=== PATIENT | male | born 1965 | race Caucasian/White ===

== ENCOUNTER 2024-10-21 03:53 | Inpatient (IN) | payer MEDICAID ==
[~2024-10-21] VITALS: Ht 165.1 cm; Wt 91.6 kg
[2024-10-21] MEDS: SODIUM CHLORIDE 0.9% 1,000 ML IV ONE (04:13)
[2024-10-21] MEDS: ONDANSETRON HCL 4MG/2ML INJ IV STA (04:43)
[2024-10-21] MEDS: MORPHINE SULFATE 4 MG/ML INJ (FOR IV/IM USE) IV STA (04:43)
[2024-10-21 05:37] LABS: CLARITY URINE CLEAR (CLEAR); COLOR URINE YELLOW (YELLOW); GLUCOSE URINE TRACE (NEGATIVE); KETONES URINE NEGATIVE (NEGATIVE); LEUKOCYTE ESTERASE URINE NEGATIVE (NEGATIVE); NITRITE URINE NEGATIVE (NEGATIVE); OCCULT BLOOD URINE TRACE (NEGATIVE); PROTEIN URINE 3+ (NEGATIVE); SPECIFIC GRAVITY URINE 1.023 (1.005-1.030); UROBILINOGEN URINE 0.2 E.U./dL (0.2-1.0)
[2024-10-21] MEDS: CEFTRIAXONE 1GM/50ML 50 ML IV ONE (05:45)
[2024-10-21 05:52] LABS: *AMPHETAMINES SCREEN URINE NEGATIVE (NEGATIVE)
[2024-10-21 05:52] LABS: HEMATOCRIT. 43.7 % (42.0-52.0); HEMOGLOBIN. 14.5 g/dL (14.0-18.0); MEAN CORPUSCULAR HEMOGLOBIN 27.6 pg (28.0-32.0); MEAN CORPUSCULAR HGB CONC 33.2 g/dL (31.0-37.0); MEAN CORPUSCULAR VOLUME 83.1 fL (80.0-94.0); MEAN PLATELET VOLUME 9.2 fl (7.4-10.4); PLATELET 316 x1000/uL (130-400); RED BLOOD CELL COUNT 5.25 mill/uL (4.7-6.1); RED CELL DISTRIBUTION WIDTH 14.5 % (11.6-14.6); WHITE BLOOD COUNT 13.4 x1000/uL (4.5-11.0)
[2024-10-21 05:54] LABS: *BARBITURATES SCREEN URINE NEGATIVE (NEGATIVE); *BENZODIAZEPINES SCREEN URINE NEGATIVE (NEGATIVE); *COCAINE SCREEN URINE NEGATIVE (NEGATIVE); CANNABINOID URINE SCREEN NEGATIVE (NEGATIVE); ECSTASY MDMA SCREEN URINE NEGATIVE (NEGATIVE); METHADONE URINE SCREEN NEGATIVE (NEGATIVE); OPIATES URINE SCREEN NEGATIVE (NEGATIVE); PHENCYCLIDINE URINE SCREEN NEGATIVE (NEGATIVE)
[2024-10-21 06:02] LABS: PROTHROMBIN TIME 11.2 sec (9.6-11.0)
[2024-10-21 06:05] LABS: DIFFERENTIAL COMMENT 1
[2024-10-21] MEDS: METRONIDAZOLE 500 MG PREMIX 100 ML IV ONE (06:11)
[2024-10-21 06:42] LABS: RBC URINE 0-2 /hpf (0-2); WBC URINE 0-2 /hpf (0-2)
[2024-10-21 06:44] LABS: BACTERIA URINE NONE SEEN; SQUAMOUS EPITHELIAL CELL URINE NONE SEEN /lpf (RARE/1+)
[2024-10-21] MEDS: LABETALOL 5MG/ML 4ML INJ IV ONE (07:36)
[2024-10-21] MEDS: KETOROLAC 15MG/ML VIAL IV ONE (07:36)
[2024-10-21 08:02] LABS: CARBON DIOXIDE 26 mEq/L (21-32); CHLORIDE 101 mEq/L (98-107); POTASSIUM 3.7 mEq/L (3.5-5.1); SODIUM 135 mEq/L (136-145)
[2024-10-21 08:03] LABS: CALCIUM 9.3 mg/dL (8.7-10.4)
[2024-10-21 08:07] LABS: TROPONIN I HIGH SENSITIVITY 7 ng/L (3.0-53)
[2024-10-21 08:08] LABS: CREATININE 1.1 mg/dL (0.6-1.3); GLUCOSE 145 mg/dL (70-105); UREA NITROGEN BLOOD 12 mg/dL (9-23)
[2024-10-21 08:09] LABS: ALANINE AMINOTRANSFERASE 31 IU/L (10-49); ALBUMIN 4.5 g/dL (3.2-4.8); ASPARTATE AMINOTRANSFERASE 58 IU/L (<34)
[2024-10-21 08:10] LABS: BILIRUBIN TOTAL 0.6 mg/dL (0.1-1.0); PROTEIN TOTAL 7.8 g/dL (6.0-8.3)
[2024-10-21 09:30] LABS: ETHANOL BLOOD < 10 mg/dL (<10)
[2024-10-21] MEDS ORDERED: DEXTROSE 50% WATER 50ML SYRINGE IV PRN (11:00)
[2024-10-21] MEDS ORDERED: ACETAMINOPHEN 325MG TABLET PO PRN (11:00)
[2024-10-21] MEDS ORDERED: MAGNESIUM/ALUMINUM HYDROXIDE/SIMETHICONE 30ML UDC PO PRN (11:00)
[2024-10-21] MEDS ORDERED: GUAIFENESIN 200MG/10ML SUGAR FREE UDC PO PRN (11:00)
[2024-10-21] MEDS ORDERED: IPRATROPIUM/ALBUTEROL 0.5-3(2.5)MG/3ML NEB HHN PRN (11:00)
[2024-10-21] MEDS ORDERED: DOCUSATE SODIUM 100MG CAPSULE PO PRN (11:00)
[2024-10-21] MEDS ORDERED: ONDANSETRON HCL 4MG/2ML INJ IV PRN (11:00)
[2024-10-21] MEDS ORDERED: NALOXONE HCL 0.4MG/ML VIAL IV PRN (11:15)
[2024-10-21] MEDS: HYDRALAZINE 20MG/ML VIAL IV PRN (11:46)
[2024-10-21] MEDS: PANTOPRAZOLE SODIUM 40 MG/VIAL IV SCH (12:15)
[2024-10-21 12:45] LABS: INR 0.9; PARTIAL THROMBOPLASTIN TIME 26.8 sec (23.4-31.0); PROTHROMBIN TIME 10.6 sec (9.6-11.0)
[2024-10-21] MEDS: INSULIN LISPRO 100 UNITS/ML SUBCUT SCH (12:50)
[2024-10-21] MEDS: BLOOD SUGAR DIAGNOSTIC STRIP TEST SCH (13:16)
[2024-10-21 13:27] LABS: PLATELET ESTIMATE NORMAL
[2024-10-21] MEDS: PIPERACILLIN/TAZO 3.375G/50ML 50 ML IV SCH (14:00)
[2024-10-21] MEDS: AMLODIPINE 5MG TABLET PO SCH (15:30)
[2024-10-21 15:54] VITALS: BP 176/106; PULSE 70; RESP 18; TEMP 36.8
[2024-10-21 16:24] LABS: LACTIC ACID 2.4 mmol/L (0.4-2.0)
[2024-10-21 16:25] LABS: TROPONIN I HIGH SENSITIVITY 6 ng/L (3.0-53)
[2024-10-21 16:26] LABS: CREATINE KINASE 94 IU/L (46-171)
[2024-10-21 20:00] VITALS: BP 138/101; PULSE 91; RESP 18; TEMP 37.9; O2SAT 98
[2024-10-21] MEDS: SODIUM CHLORIDE 0.9% 1,000 ML IV SCH (21:21)
[2024-10-21] MEDS: ACETAMINOPHEN 325MG TABLET PO PRN (21:21)
[2024-10-21 22:18] LABS: TROPONIN I HIGH SENSITIVITY 6 ng/L (3.0-53)
[2024-10-21 22:19] LABS: CREATINE KINASE 82 IU/L (46-171)
[2024-10-22] VITALS: BP 159/98; PULSE 66; RESP 18; TEMP 37; O2SAT 99
[2024-10-22 04:00] VITALS: BP 155/93; PULSE 76; RESP 17; TEMP 36.9; O2SAT 98
[2024-10-22 06:51] LABS: BASOPHILS % 0.6 % (0.0-2.0); CARBON DIOXIDE 25 mEq/L (21-32); CHLORIDE 105 mEq/L (98-107); EOSINOPHILS % 0.3 % (0.0-5.0); HEMATOCRIT. 41.8 % (42.0-52.0); LYMPHOCYTES % 15.4 % (20.0-50.0); MEAN CORPUSCULAR HEMOGLOBIN 27.8 pg (28.0-32.0); MEAN CORPUSCULAR HGB CONC 33.5 g/dL (31.0-37.0); MEAN PLATELET VOLUME 8.7 fl (7.4-10.4); MONOCYTES % 12.4 % (2.0-8.0); NEUTROPHILS % 71.3 % (40.0-76.0); PLATELET 292 x1000/uL (130-400); POTASSIUM 3.7 mEq/L (3.5-5.1); RED BLOOD CELL COUNT 5.04 mill/uL (4.7-6.1); RED CELL DISTRIBUTION WIDTH 14.5 % (11.6-14.6); SODIUM 137 mEq/L (136-145); WHITE BLOOD COUNT 10.5 x1000/uL (4.5-11.0)
[2024-10-22 06:52] LABS: CALCIUM 8.6 mg/dL (8.7-10.4)
[2024-10-22 06:56] LABS: CREATININE 1.1 mg/dL (0.6-1.3)
[2024-10-22 06:57] LABS: GLUCOSE 123 mg/dL (70-105); TRIGLYCERIDE 97 mg/dL (0-150); UREA NITROGEN BLOOD 13 mg/dL (9-23)
[2024-10-22 06:58] LABS: ALANINE AMINOTRANSFERASE 28 IU/L (10-49); ALBUMIN 3.7 g/dL (3.2-4.8); ASPARTATE AMINOTRANSFERASE 27 IU/L (<34); LDL CHOLESTEROL 83 mg/dL (5-100)
[2024-10-22 06:59] LABS: CHOLESTEROL 152 mg/dL (<200); HDL CHOLESTEROL 50 mg/dL (>55); PHOSPHORUS 2.7 mg/dL (2.5-4.9); PROTEIN TOTAL 7.1 g/dL (6.0-8.3)
[2024-10-22 07:01] LABS: T4 FREE 1.09 ng/dL (0.89-1.76); THYROID STIMULATING HORMONE 1.05 uIU/mL (0.55-4.78)
[2024-10-22 08:00] VITALS: BP 145/89; PULSE 78; RESP 19; TEMP 36.8; O2SAT 99
[2024-10-22 12:00] VITALS: BP 153/79; PULSE 79; RESP 19; TEMP 36.4; O2SAT 99
[2024-10-22 16:00] VITALS: BP 158/92; PULSE 81; RESP 18; TEMP 36.8; O2SAT 100
[2024-10-22] MEDS: DEXT 5%/0.9% NACL 1,000 ML IV SCH (18:20)
[2024-10-22 20:00] VITALS: BP 171/109; PULSE 72; RESP 18; TEMP 36.5; O2SAT 100
[2024-10-22] MEDS: MORPHINE SULFATE 2 MG/ML INJ (NOT FOR IM USE) IV PRN (22:19)
[2024-10-23] VITALS: BP 183/101; PULSE 71; RESP 18; TEMP 36.6; O2SAT 100
[2024-10-23] MEDS: HYDRALAZINE 10 MG in SODIUM CHLORIDE 0.9% 49.5 ML IV PRN (01:15)
[2024-10-23 04:00] VITALS: BP 157/82; PULSE 66; RESP 19; TEMP 36.8; O2SAT 100
[2024-10-23] MEDS: CLONIDINE 0.1MG TABLET PO PRN (04:51)
[2024-10-23 07:31] LABS: CHLORIDE 103 mEq/L (98-107); POTASSIUM 3.4 mEq/L (3.5-5.1); SODIUM 133 mEq/L (136-145)
[2024-10-23 07:32] LABS: CARBON DIOXIDE 21 mEq/L (21-32)
[2024-10-23 07:37] LABS: CREATININE 0.9 mg/dL (0.6-1.3); GLUCOSE 168 mg/dL (70-105); UREA NITROGEN BLOOD 8 mg/dL (9-23)
[2024-10-23 08:00] VITALS: BP 156/97; PULSE 72; RESP 18; TEMP 36.7; O2SAT 100
[2024-10-23] MEDS: FAMOTIDINE 20MG/2ML VIAL IV SCH (08:21)
[2024-10-23 08:24] LABS: BASOPHILS % 0.3 % (0.0-2.0); EOSINOPHILS % 0.1 % (0.0-5.0); HEMATOCRIT. 41.5 % (42.0-52.0); HEMOGLOBIN. 13.7 g/dL (14.0-18.0); LYMPHOCYTES % 8.1 % (20.0-50.0); MEAN CORPUSCULAR HEMOGLOBIN 27.3 pg (28.0-32.0); MEAN CORPUSCULAR HGB CONC 32.9 g/dL (31.0-37.0); MEAN PLATELET VOLUME 9.1 fl (7.4-10.4); MONOCYTES % 8.9 % (2.0-8.0); NEUTROPHILS % 82.6 % (40.0-76.0); PLATELET 140 x1000/uL (130-400); RED CELL DISTRIBUTION WIDTH 14.5 % (11.6-14.6); WHITE BLOOD COUNT 13.1 x1000/uL (4.5-11.0)
[2024-10-23] MEDS: LISINOPRIL 20MG TABLET PO SCH (09:20)
[2024-10-23] MEDS: NIFEDIPINE XL 30MG TAB PO SCH (09:20)
[2024-10-23] MEDS: POTASSIUM CHLORIDE 20MEQ TABLET SR PO NR (09:20)
[2024-10-23] MEDS: MAGNESIUM 2 G PREMIX 50 ML IV NR (10:47)
[2024-10-23 12:00] VITALS: BP 159/96; PULSE 82; RESP 18; TEMP 36.8; O2SAT 100
[2024-10-23] MEDS ORDERED: LISI20TA31 PO (15:52)
[2024-10-23] MEDS ORDERED: NIFE-33 PO (15:52)
[2024-10-23 16:00] VITALS: BP 157/97; PULSE 80; RESP 18; TEMP 36.6; O2SAT 100
[2024-10-23 16:10] VITALS: BP 157/97; PULSE 82; TEMP 97.9; O2SAT 100
== END 2024-10-23 18:50 | disposition home or self-care (01) ==
LOC: ER 03:53 → 6EST 09:36 → EDBEDREQ 09:40 → EDBEDREQTM 09:40 → 6EST 13:56
PROVIDERS: ADMIT Internal Medicine; ATTEND Internal Medicine
DX: K80.00 Calculus of gallbladder with acute cholecystitis without obstruction (principal); N13.30 Unspecified hydronephrosis; C67.9 Malignant neoplasm of bladder, unspecified; E11.9 Type 2 diabetes mellitus without complications; K57.30 Diverticulosis of large intestine without perforation or abscess without bleeding; K40.20 Bilateral inguinal hernia, without obstruction or gangrene, not specified as recurrent; I10 Essential (primary) hypertension; Z93.6 Other artificial openings of urinary tract status; Z80.52 Family history of malignant neoplasm of bladder
CPT/HCPCS: 36415; 74176; 76705; 80048; 80053; 80061; 80305; 80320; 81003; 82550; 82962; 83036; 83605; 83735; 84100; 84145; 84439; 84443; 84484; 85025; 86900; 93005; 93970; 99291; J0360; J0696; J1885; J2270; J2405; J2470; J2543; J3475; J3490; J7030; J7042; G0480